=== PATIENT | female | born 1970 | race Caucasian/White ===

== ENCOUNTER 2016-09-07 07:07 | Emergency (ER) | payer OTHER, BC ==
[~2016-09-07] VITALS: Ht 154.9 cm; Wt 84.4 kg
[~2016-09-07 07:07] MED LIST: HYDR-4246 PO; NO ROUTINE MEDS; ORPH100T2 PO; TRAM50TA53 PO
[2016-09-07 07:10] VITALS: Ht 154.9 cm; Wt 84.4 kg
--- OUTSIDE RECORDS SUMMARY | 2016-09-07 07:11 | XMS REPORT ---
Author Author Umu Marx Organization [employer] Address Unknown Phone Unavailable Care Team Providers Care Optical Effects Layout Person Name Role Phone Umu Marx CP Unavailable Allergies, Adverse Reactions, Alerts Substance Reaction Event Type Sulfa rash Drug Allergy Problems Problem Type Condition Code Onset Dates Condition Status Assessment Cough R05 Active Assessment Major depressive disorder with single episode, remission status unspecified F32.9 Active Problem Major depressive disorder with single episode, remission status unspecified F32.9 Active Medications Medication Code System Code Instructions Start Date End Date Status Dosage Lidoderm [facility] [address]-01 5 % Externally on for 12 hrs then off x12 hr before applying new patch September 08, 2015 1 patch to intact skin remove after 12 hours ProAir HFA [facility] [address]-42 108 (90 Base) MCG/ACT Inhalation every 4 hrs Mar 15, 2016 2 puffs as needed Tessalon Perles [facility] [address]-25 100 MG Orally Three times a day Mar 15, 2016 Mar 20, 2016 1 capsule as needed Lisinopril [facility] [address]-37 10 MG Orally Once a day August 30, 2015 1 tablet Hydrocodone-Acetaminophen [facility] [address]-05 5-325 MG Orally every 12 hrs Mar 15, 2016 Mar 18, 2016 1 tablet as needed BuPROPion HCl (SR) [facility] [address]-07 150 MG Orally daily for one week then twice a day Mar 15, 2016 1 tablet Cold and Flu [facility] 84[address]20 Orally bid not defined Tramadol HCl [facility] [address]-08 50 MG Orally every 6 hrs 1 tablet as needed Procedures Procedure Coding System Code Date OFFICE VISIT, EST-LOW COMPLEXITY (15 MIN.) CPT-4 61704 Mar 15, 2016 Vital Signs Date/Time: Mar 15, 2016 Temperature 98 F Height 61.5 in Weight 214 lbs Blood Pressure Diastolic 90 mm Hg Blood Pressure Systolic 150 mm Hg Cardiac Monitoring Heart Rate 87 /min BMI 39.78 Index Oximetry 98 % Respiratory Rate 18 /min Results No Known Results Summary Purpose eClinicalWorks Submission
--- OUTSIDE RECORDS SUMMARY | 2016-09-07 07:11 | XMS REPORT ---
Author Donna Slaughter Organization [employer] Address Unknown Phone Unavailable Care Team Providers Care Drafter Chief Design Name Role Phone Donna Lou CP Unavailable Allergies, Adverse Reactions, Alerts Substance Reaction Event Type Sulfa rash Drug Allergy Problems Problem Type Condition Code Onset Dates Condition Status Assessment Essential (primary) hypertension I10 Active Assessment Contracture of muscle, left shoulder M62.412 Active Medications Medication Code System Code Instructions Start Date End Date Status Dosage Aspirin Adult Low Strength [facility] [address]-25 81 MG Orally Once a day 1 tablet Lisinopril [facility] [address]-71 10 MG Orally Once a day August 30, 2015 1 tablet Orphenadrine Citrate ER [facility] [address]-74 100 MG Orally Once a day 1 tablet at bedtime Tramadol HCl [facility] [address]-62 50 MG Orally every 6 hrs 1 tablet as needed Cyclobenzaprine HCl [facility] [address]-71 10 MG Orally TID prn August 30, 2015 October 29, 2015 1/2-1 tab Hydrocodone-Acetaminophen [facility] [address]-68 5-325 MG Orally every 6 hrs 1 tablet as needed Procedures Procedure Coding System Code Date OFFICE VISIT, VOIP NETWORK ENGINEER-LOW COMPLEXITY (30 MIN.) CPT-4 17174 August 30, 2015 Vital Signs Date/Time: August 30, 2015 Temperature 98.7 F Height 61.5 in Weight 217.12 lbs Blood Pressure Diastolic 91 mm Hg Blood Pressure Systolic 155 mm Hg Cardiac Monitoring Heart Rate 80 /min BMI 40.36 Index Respiratory Rate 18 /min Results No Known Results Summary Purpose eClinicalWorks Submission
--- OUTSIDE RECORDS SUMMARY | 2016-09-07 07:11 | XMS REPORT ---
Author Donna Slaughter [facility] eClinicalWorks Address Unknown Phone Unavailable Care Team Providers Care Trapper Bird Name Role Phone Donna Lou Unavailable Allergies No Known Allergies Problems Problem Type Condition Code Onset Dates Condition Status Problem Major depressive disorder with single episode, remission status unspecified F32.9 Active Assessment Other chest pain R07.89 Active Problem Major depressive disorder, single episode, moderate F32.1 Active Assessment Bronchitis J40 Active Assessment Cough R05 Active Assessment Rib pain on right side R07.81 Active Medications Medication Code System Code Instructions Start Date End Date Status Dosage Lisinopril [facility] [address]-58 10 MG Orally Once a day August 30, 2015 1 tablet Lidoderm [facility] [address]-46 5 % Externally on for 12 hrs then off x12 hr before applying new patch September 08, 2015 1 patch to intact skin remove after 12 hours ProAir HFA [facility] [address]-78 108 (90 Base) MCG/ACT Inhalation every 4 hrs Mar 15, 2016 2 puffs as needed Tessalon Perles [facility] [address]-93 100 MG Orally Three times a day Mar 15, 2016 Mar 20, 2016 1 capsule as needed Doxycycline Hyclate [facility] [address]-24 100 MG Orally Once a day Mar 20, 2016 Mar 30, 2016 1 capsule BuPROPion HCl (SR) [facility] [address]-11 150 MG Orally daily for one week then twice a day Mar 15, 2016 1 tablet Tramadol HCl [facility] [address]-33 50 MG Orally every 6 hrs 1 tablet as needed Cold and Flu [facility] [address]6783-[address]56 Orally bid not defined Procedures Procedure Coding System Code Date COMPLETE CBC W/AUTO DIFF WBC CPT-4 67335 Mar 20, 2016 COMPREHENSIVE METABOLIC PANEL CPT-4 47606 Mar 20, 2016 C-REACTIVE PROTEIN CPT-4 61500 Mar 20, 2016 Results Name Result Date Reference Range Unit Abnormality Flag C-Reactive Protein ----C-Reactive Protein 0.7 [id number] <0.5 mg/dL H eGFR ----eGFR >60 [id number] >60 mL/min CBC With Platelet and Differential ----Absolute Eosinophils 0.25 [id number] 0.00-0.50 10*3 ----Absolute Monocytes 0.39 [id number] 0.30-1.00 10*3 ----Neutrophils 60 53433788 51-75 % ----Absolute Basophils 0.05 [id number] 0.00-0.20 10*3 ----MPV 9.3 87932069 8.8-14.8 fL ----Monocytes 5 57771084 4-11 % ----RDW 13.3 14337036 11.5-14.5 % ----Lymphocytes 31 39364156 20-46 % ----MCHC 33.3 04114165 32.0-36.0 g/dL ----MCH 30.1 [id number] 27.0-32.0 pg ----MCV 90.2 88591459 82.0-99.0 fL ----Immature Granulocytes 0.3 20790128 0.0-1.0 % ----Platelet Count 404 [id number] 150-400 K/uL H ----Absolute Lymphocytes 2.40 96718053 0.80-3.30 10*3 ----Absolute Neutrophils 4.70 40897510 1.90-7.00 10*3 ----Eosinophils 3 25702355 0-4 % ----Basophils 1 59482209 0-2 % ----WBC 7.8 82045568 4.8-10.8 K/uL ----RBC 4.29 49831688 4.00-5.20 10*6/uL ----HGB 12.9 29858412 12.0-16.0 g/dL ----HCT 38.7 21303935 37.0-47.0 % Comprehensive Metabolic Panel (CMP) ----Chloride 107 20239974 99-111 mEq/L ----Potassium 4.5 04258477 3.5-5.2 mEq/L ----Albumin 4.3 39773483 3.5-5.0 g/dL ----CO2 26 71059626 22-31 mEq/L ----Alkaline Phosphatase 125 20160320 40-150 U/L ----Protein 6.7 20160320 6.1-7.7 g/dL ----Bilirubin Total 0.3 20160320 0.2-1.2 mg/dL ----Anion Gap 10 20160320 3-20 ----Calcium 9.7 20160320 8.9-10.5 mg/dL ----Globulin 2.4 20160320 1.8-4.0 g/dL ----Sodium 143 20160320 135-144 mEq/L ----BUN 9 20160320 7-19 mg/dL ----ALT (SGPT) 22 20160320 0-55 U/L ----AST (SGOT) 17 20160320 5-34 U/L ----Creatinine 0.88 20160320 0.57-1.11 mg/dL ----Glucose 90 28037975 70-99 mg/dL Summary Purpose eClinicalWorks Submission
--- OUTSIDE RECORDS SUMMARY | 2016-09-07 07:11 | XMS REPORT ---
Author Author Donna Lou [facility] eClinicalWorks Address Unknown Phone Unavailable Care Team Providers Care Wildlife Removal Specialist Name Role Phone Donna Lou CP Unavailable Allergies No Known Allergies Problems No Known Problems Medications No Known Medications Results No Known Results Summary Purpose eClinicalWorks Submission
--- OUTSIDE RECORDS SUMMARY | 2016-09-07 07:11 | XMS REPORT ---
Author Author Umu Marx Organization [employer] Address Unknown Phone Unavailable Care Team Providers Care Salesperson Stereo Equipment Name Role Phone Umu Marx CP Unavailable Allergies, Adverse Reactions, Alerts Substance Reaction Event Type Sulfa rash Drug Allergy Problems Problem Type Condition Code Onset Dates Condition Status Assessment Screening for cervical cancer Z12.4 Active Assessment Anxiety F41.9 Active Assessment Essential hypertension I10 Active Problem Essential hypertension I10 Active Problem High triglycerides E78.1 Active Problem Moderate single current episode of major depressive disorder F32.1 Active Problem Major depressive disorder with single episode, remission status unspecified F32.9 Active Assessment Moderate single current episode of major depressive disorder F32.1 Active Problem Anxiety F41.9 Active Problem Major depressive disorder, single episode, moderate F32.1 Active Assessment Encounter for gynecological examination (general) (routine) without abnormal findings Z01.419 Active Assessment History of hysterectomy for cancer Z90.710 Active Assessment High triglycerides E78.1 Active Assessment Screening for breast cancer Z12.39 Active Medications Medication Code System Code Instructions Start Date End Date Status Dosage Lisinopril [facility] [address]-40 10 MG Orally Once a day August 30, 2015 1 tablet ProAir HFA [facility] [address]-83 108 (90 Base) MCG/ACT Inhalation every 4 hrs Mar 15, 2016 2 puffs as needed Estroven [facility] [address]56 Orally not defined Promethazine-Codeine [facility] [address]-05 6.25-10 MG/5ML Orally q6-8 hr prn. DO NOT take with tessalon perles Mar 28, 2016 5 ml as needed BusPIRone HCl [facility] [address]-81 7.5 MG Orally Twice a day Apr 11, 2016 1 tablet Tramadol HCl [facility] [address]-78 50 MG Orally every 6 hrs 1 tablet as needed Lidoderm [facility] [address]-46 5 % Externally on for 12 hrs then off x12 hr before applying new patch September 08, 2015 1 patch to intact skin remove after 12 hours Venlafaxine HCl [facility] [address]-70 37.5 MG Orally Twice a day Apr 11, 2016 1 tablet with food daily for week then twice daily Fish Oil [facility] [address]-63 1000 MG Orally 3 Times a day Apr 25, 2016 May 25, 2016 1 capsule Cold and Flu [facility] [address] Orally bid not defined Procedures Procedure Coding System Code Date OFFICE VISIT, EST-LOW COMPLEXITY (15 MIN.) CPT-4 26801 Apr 24, 2016 BEHAV CHNG SMOKING 3-10 MIN CPT-4 39228 Apr 24, 2016 Vital Signs Date/Time: Apr 24, 2016 Temperature 98.3 F Height 61.5 in Weight 210 lbs Blood Pressure Diastolic 90 mm Hg Blood Pressure Systolic 132 mm Hg Cardiac Monitoring Heart Rate 72 /min BMI 39.03 Index Oximetry 99 % Respiratory Rate 16 /min Results No Known Results Summary Purpose eClinicalWorks Submission
--- OUTSIDE RECORDS SUMMARY | 2016-09-07 07:11 | XMS REPORT ---
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 Assessment Contracture of muscle, left shoulder M62.412 Active Assessment Other chest pain R07.89 Active Medications Medication Code System Code Instructions Start Date End Date Status Dosage Baclofen [facility] [address]-92 10 MG Orally Three times a day September 21, 2015 November 20, 2015 1/2-1 tablet tid prn Lisinopril [facility] [address]-24 10 MG Orally Once a day August 30, 2015 1 tablet Lidoderm [facility] [address]-79 5 % Externally on for 12 hrs then off x12 hr before applying new patch September 08, 2015 1 patch to intact skin remove after 12 hours Tramadol HCl [facility] [address]-82 50 MG Orally every 6 hrs 1 tablet as needed Acyclovir [facility] [address]-15 800 MG Orally 5 times a day for 7 days August 1 tablet Aspirin Adult Low Strength [facility] [address]-84 81 MG Orally Once a day 1 tablet Procedures Procedure Coding System Code Date OFFICE VISIT, EST-LOW COMPLEXITY (15 MIN.) CPT-4 32452 September 21, 2015 Vital Signs Date/Time: September 21, 2015 Temperature 98.2 F Height 61.5 in Weight 214.12 lbs Blood Pressure Diastolic 88 mm Hg Blood Pressure Systolic 132 mm Hg Cardiac Monitoring Heart Rate 93 /min BMI 39.80 Index Respiratory Rate 18 /min Results No Known Results Summary Purpose eClinicalWorks Submission
--- OUTSIDE RECORDS SUMMARY | 2016-09-07 07:11 | XMS REPORT | Referral Summary ---
Author Organization Unknown Address Unknown Phone Unavailable Care Team Providers Care Jewel Bearing Grinder Name Role Phone Eder Orta Primary Care Physician [phone] Encounter VC Date(s): 06/22/14 - 06/22/14 Via [facility], [facility] [address] [place] [address]- Discharge Diagnosis: Visit for screening mammogram Discharge Diagnosis: Fatigue Discharge Diagnosis: Breast pain Discharge Diagnosis: Depression Discharge Diagnosis: Weight gain Discharge Diagnosis: HTN (hypertension) Discharge Disposition: Home or Self Care Attending Physician: Gema Leroy APRN Admitting Physician: Gema Leroy APRN Vital Signs Most recent to 1 oldest [Reference Range]: Temperature Tympanic 36.3 degC [36.6-38.1 degC] *LOW* (06/22/14 9:05 AM) Peripheral Pulse 72 bpm Rate [60-100 bpm] (06/22/14 9:05 AM) Blood Pressure 104/60 mmHg [90-140/60-90 mmHg] (06/22/14 9:05 AM) Problem List Condition Effective Dates Status Health Status Informant Hypertension(Confirm Resolved ed) Obesity(Confirmed) Resolved Tobacco Active patient user(Confirmed) Allergies, Adverse Reactions, Alerts Substance Reaction Severity Status sulfanilamide topical Rash Active Medications FLUoxetine 10 mg oral capsule See Instructions, TAKE ONE CAPSULE BY MOUTH ONCE DAILY IN THE MORNING, # 15 caps , 0 Refill(s), Pharmacy: [id number], due for appointment, TAKE ONE CAPSULE BY MOUTH ONCE DAILY IN THE MORNING Special Instructions: TAKE ONE CAPSULE BY MOUTH ONCE DAILY IN THE MORNING Start Date: 06/14/14 Status: Ordered FLUoxetine 20 mg oral tablet 1 tabs, Oral, Daily, # 30 tabs, 0 Refill(s), Pharmacy: [id number], 1 tabs Oral Daily Start Date: 06/22/14 Status: Ordered lisinopril 10 mg oral tablet See Instructions, TAKE ONE TABLET BY MOUTH DAILY, # 90 tabs, 1 Refill(s), Pharmacy: [id number], TAKE ONE TABLET BY MOUTH DAILY Special Instructions: TAKE ONE TABLET BY MOUTH DAILY Start Date: 06/16/14 Status: Ordered [place] 5 mg-325 mg oral tablet 1 tabs, Oral, q6hr, as needed for pain, # 20 tabs, 0 Refill(s) Start Date: 05/06/14 Status: Ordered Results Hematology Most recent to 1 oldest [Reference Range]: WBC [4.8-10.8 K/uL] 5.7 K/uL (06/22/14 9:56 AM) RBC [4.00-5.20 M/uL] 4.18 M/uL (06/22/14 9:56 AM) Hgb [12.0-16.0 13.2 gm/dL gm/dL] (06/22/14 9:56 AM) Hct [37.0-47.0 %] 38.3 % (06/22/14 9:56 AM) MCV [82.0-99.0 fL] 91.6 fL (06/22/14 9:56 AM) MCH [27.0-32.0 pg] 31.6 pg (06/22/14 9:56 AM) MCHC [32.0-36.0 34.5 gm/dL gm/dL] (06/22/14 9:56 AM) RDW [11.5-14.5 %] 12.9 % (06/22/14 9:56 AM) Platelet [150-400 303 K/uL K/uL] (06/22/14 9:56 AM) MPV [8.8-14.8 fL] 9.7 fL (06/22/14 9:56 AM) Immature 0.2 % Granulocytes (06/22/14 9:56 AM) [0.0-1.0 %] Neutrophils [51-75 53 % %] (06/22/14 9:56 AM) Lymphocytes [20-46 35 % %] (06/22/14 9:56 AM) Monocytes [4-11 %] 7 % (06/22/14 9:56 AM) Eosinophils [0-4 %] 4 % (06/22/14 9:56 AM) Basophils [0-2 %] 1 % (06/22/14 9:56 AM) Neutro Absolute 3.01 THOUS [1.90-7.00 THOUS] (06/22/14 9:56 AM) Lymph Absolute 1.99 THOUS [0.80-3.30 THOUS] (06/22/14 9:56 AM) [place] Absolute 0.42 THOUS [0.30-1.00 THOUS] (06/22/14 9:56 AM) Eos Absolute 0.21 THOUS [0.00-0.50 THOUS] (06/22/14 9:56 AM) Baso Absolute 0.04 THOUS [0.00-0.20 THOUS] (06/22/14 9:56 AM) Chemistry Most recent to 1 oldest [Reference Range]: Sodium Lvl [135-144 145 mEq/L mEq/L] *HI* (06/22/14 9:56 AM) Potassium Lvl 4.0 mEq/L [3.5-5.2 mEq/L] (06/22/14 9:56 AM) Chloride [99-111 109 mEq/L mEq/L] (06/22/14 9:56 AM) CO2 [22-31 mEq/L] 26 mEq/L (06/22/14 9:56 AM) AGAP [3-20] 10 (06/22/14 9:56 AM) BUN [7-19 mg/dL] 13 mg/dL (06/22/14 9:56 AM) Glucose Lvl [70-99 74 mg/dL mg/dL] (06/22/14 9:56 AM) Creatinine Lvl 0.79 mg/dL [0.57-1.11 mg/dL] (06/22/14 9:56 AM) eGFR [>60 mL/min] >60 mL/min 1 (06/22/14 9:56 AM) Calcium Lvl 9.5 mg/dL [8.9-10.5 mg/dL] (06/22/14 9:56 AM) Chol [0-199 mg/dL] 205 mg/dL *HI* (06/22/14 9:56 AM) Trig [0-149 mg/dL] 123 mg/dL (06/22/14 9:56 AM) HDL [40-84 mg/dL] 39 mg/dL *LOW* (06/22/14 9:56 AM) LDL [0-130 mg/dL] 141 mg/dL *HI* (06/22/14 9:56 AM) VLDL Cholesterol 25 mg/dL [0-28 mg/dL] (06/22/14 9:56 AM) Cardiac Risk 5.3 [0.0-5.0] *HI* (06/22/14 9:56 AM) TSH with Reflex Free 0.51 T4 [0.35-4.94] (06/22/14 9:56 AM) 1Result Comment: Multiply eGFR results by 1.21 for race. Immunizations Vaccine Date Refusal Reason tetanus/diphth/pertuss (Tdap) adult/adol1 05/05/14 1Result Comment: [05/06/2014] Given at [facility] Procedures Procedure Date Related Diagnosis Body Site Collection of venous blood by venipuncture 06/22/14 DANITZA BSO - Total abdominal hysterectomy and 1994 bilateral salpingo-oophorectomy Appendectomy Carpal tunnel release delivery Hernia repair History of back surgery Hysterectomy Social History Social History Type Response Smoking Status Current every day smoker Assessment and Plan Extracted from: Title: Ambulatory Patient Education Author: Gema Leroy APRN Date : 06/22/14 Family Medicine Hypertension Hypertension is another name for high blood pressure. High blood pressure may mean that your heart needs to work harder to pump blood. Blood pressure consists of two numbers, which includes a higher number over a lower number ( example: 110/72). HOME CARE Make lifestyle changes as told by your doctor. This may include weight loss and exercise. Take your blood pressure medicine every day. Limit how much salt you use. Stop smoking if you smoke. Do not use drugs. Talk to your doctor if you are using decongestants or control pills. These medicines might make blood pressure higher. Females should not drink more than 1 alcoholic drink per day. Males should not drink more than 2 alcoholic drinks per day. See your doctor as told. GET HELP RIGHT AWAY IF: You have a blood pressure reading with a top number of 180 or higher. You get a very bad headache. You get blurred or changing vision. You feel confused. You feel weak, numb, or faint. You get chest or belly (abdominal ) pain. You throw up (vomit ). You cannot breathe very well. MAKE SURE YOU: Understand these instructions. Will watch your condition. Will get help right away if you are not doing well or get worse. Document Released: 10/22/2008 Document Revised: 07/28/2012 Document Reviewed: [employer] Patient Information 2014 [employer]. No follow up information was provided. Extracted from: Title: Office Visit Note Author: Gema Leroy APRN Date: 06/22/14 Assessment/Plan Breast pain Depression increase prozac to 20mg daily. rtc in 1mo. Fatigue HTN (hypertension) hold lisinopril at this time. recheck bp outside of clinic. Ordered: Basic Metabolic Panel CBC w/ Differential Lipid Panel Visit for screening mammogram due for [facility]. please schedule soon. Weight gain Ordered: TSH with Reflex Free T4 Orders: FLUoxetine, 1 tabs, Oral, Daily, # 30 tabs, 0 Refill(s), Pharmacy: [id number], 1 tabs Oral Daily MG Mammogram Diagnostic Bilateral
--- OUTSIDE RECORDS SUMMARY | 2016-09-07 07:11 | XMS REPORT ---
Author Author Ron Rockwell Organization Unknown Address [address], [place] [id number] Phone Care Team Providers Care Dry Plasterer Helper Name Role Phone Apollo JENSEN PP Unavailable Reason for Referral No Reason for Referral was given. History of Present Illness HCPA Text Box HPI: Patient complains of numbness to left shoulder and electrical feeling down into legs. DOI 04/03/12. W/C [facility]. Problems * Normal Routine History And Physical Adult (V70.0); (Active) * Normal Routine History And Physical Adult (V70.0); (Active) Medication * Hydrocodone-Acetaminophen 5-325 MG Oral Tablet; Start Date: 07/04/2012 (Active ) * Atenolol-Chlorthalidone 50-25 MG Oral Tablet; TAKE 1 TABLET DAILY.; Start Date : 07/04/2012 (Active) * Flexeril 10 MG Oral Tablet; TAKE 1 TABLET 3 TIMES DAILY NEEDED.; Start Date : 07/04/2012 (Active) * FLUoxetine HCl 40 MG Oral Capsule; TAKE 1 CAPSULE DAILY.; Start Date: 2012 (Active) * TraMADol HCl 50 MG Oral Tablet; TAKE 1 TABLET EVERY 12 HOURS NEEDED.; Start Date: 09/18/2012 (Active) Allergies and Adverse Reactions * Sulfa Drugs (Active) Past Medical History * No Significant Medical History Social History * Current Smoker (305.1); (Active) Vital Signs Date Description Test Result 18 Sep 2012 10:14 AM recorded by: Kelly Fowler BP Systolic 132 mm[Hg] BP Diastolic 88 mm[Hg] Heart Rate 68 /min Advance Directives * No Advance Directives available. Encounters * Appointment 09/18/2012 * RTNPT , Provider: Matty Almazan, Status: Can , Time: 11:30 AM 09/30/2012 * [id number] , Provider: Matty Almazan, Status: Pen , Time: 11:30 AM 09/30/2012
--- OUTSIDE RECORDS SUMMARY | 2016-09-07 07:11 | XMS REPORT ---
Author Donna Slaughter eClinicalWorks Address Unknown Phone Unavailable Care Team Providers Care Screw Supervisor Name Role Phone Donna Lou Unavailable Allergies, Adverse Reactions, Alerts Substance Reaction [...] Instructions Start Date End Date Status Dosage BuPROPion HCl (SR) [facility] [address]-46 150 MG Orally daily for one week then twice a day Mar 15, 2016 1 tablet Cold and Flu [facility] [address] Orally bid not defined Doxycycline Hyclate [facility] [address]-23 100 MG Orally Once a day Mar 20, 2016 Mar 30, 2016 1 capsule Lisinopril [facility] [address]-63 10 MG Orally Once a day August 30, 2015 1 tablet Lidoderm [facility] [address]-56 5 % Externally on for 12 hrs then off x12 hr before applying new patch September 08, 2015 1 patch to intact skin remove after 12 hours Tesjeannaon Lorettaes [facility] [address]-16 100 MG Orally Three times a day Mar 15, 2016 Mar 20, 2016 1 capsule as needed Tramadol HCl [facility] [address]-11 50 MG Orally every 6 hrs 1 tablet as needed ProAir HFA [facility] [address]-81 108 (90 Base) MCG/ACT Inhalation every 4 hrs Mar 15, 2016 2 puffs as needed Procedures Procedure Coding System Code Date OFFICE VISIT, EST-LOW COMPLEXITY (15 MIN.) CPT-4 57642 Mar 20, 2016 Vital Signs Date/Time: Mar 20, 2016 Temperature 99.6 F Height 61.5 in Weight 212.8 lbs Blood Pressure Diastolic 90 mm Hg Blood Pressure Systolic 152 mm Hg Cardiac Monitoring Heart Rate 89 /min BMI 39.55 Index Oximetry 94 % Results No Known Results Summary Purpose eClinicalWorks Submission
--- OUTSIDE RECORDS SUMMARY | 2016-09-07 07:11 | XMS REPORT | Continuity of Care Document ---
Author Author [facility] Organization [facility] Address Unknown Phone Unavailable Allergies Medications Problems Procedures Results Encounters ACCT No. Visit Date/Time Discharge Status Pt. Type Provider Facility Loc./Unit Complaint [id number] 07/31/2013 14:50:00 07/31/2013 23 :59:59 CLS Outpatient
--- OUTSIDE RECORDS SUMMARY | 2016-09-07 07:11 | XMS REPORT ---
Author Author Donna Lou [facility] eClinicalWorks Address Unknown Phone Unavailable Care Team Providers Care Retail Merchandiser Name Role Phone Donna Lou CP Unavailable Allergies No Known Allergies Problems No Known Problems Medications Medication Code System Code Instructions Start Date End Date Status Dosage Lisinopril [facility] [address]-93 10 MG Orally Once a day August 30, 2015 1 tablet Results No Known Results Summary Purpose eClinicalWorks Submission
--- OUTSIDE RECORDS SUMMARY | 2016-09-07 07:11 | XMS REPORT ---
Author Author Umu Marx Organization eClinicalWorks Address Unknown Phone Unavailable Care Team Providers Care Health Inspector Name Role Phone Umu Marx CP Unavailable Allergies, Adverse Reactions, Alerts Substance Reaction Event Type Sulfa rash Drug Allergy Problems Problem Type Condition Code Onset Dates Condition Status Problem Major depressive disorder, single episode, moderate F32.1 Active Problem Major depressive disorder with single episode, remission status unspecified F32.9 Active Problem Anxiety F41.9 Active Assessment Single current episode of major depressive disorder, unspecified depression episode severity F32.9 Active Assessment Anxiety F41.9 Active Medications Medication Code System Code Instructions Start Date End Date Status Dosage ProAir HFA [facility] [address]-42 108 (90 Base) MCG/ACT Inhalation every 4 hrs Mar 15, 2016 2 puffs as needed BusPIRone HCl [facility] [address]-28 7.5 MG Orally Twice a day Apr 11, 2016 1 tablet Venlafaxine HCl [facility] [address]-56 37.5 MG Orally Twice a day Apr 11, 2016 1 tablet with food daily for week then twice daily Cold and Flu [facility] [address] Orally bid not defined Promethazine-Codeine [facility] [address]-95 6.25-10 MG/5ML Orally q6-8 hr prn. DO NOT take with tessalon perles Mar 28, 2016 5 ml as needed Lidoderm [facility] [address]-58 5 % Externally on for 12 hrs then off x12 hr before applying new patch September 08, 2015 1 patch to intact skin remove after 12 hours Tramadol HCl [facility] [address]-70 50 MG Orally every 6 hrs 1 tablet as needed Lisinopril [facility] [address]-72 10 MG Orally Once a day August 30, 2015 1 tablet Procedures Procedure Coding System Code Date OFFICE VISIT, EST-LOW COMPLEXITY (15 MIN.) CPT-4 85503 Apr 11, 2016 Vital Signs Date/Time: Apr 11, 2016 Temperature 98.2 F Height 61.5 in Weight 210 lbs Blood Pressure Diastolic 88 mm Hg Blood Pressure Systolic 146 mm Hg Cardiac Monitoring Heart Rate 86 /min BMI 39.03 Index Oximetry 98 % Respiratory Rate 16 /min Results No Known Results Summary Purpose eClinicalWorks Submission
--- OUTSIDE RECORDS SUMMARY | 2016-09-07 07:11 | XMS REPORT | Referral Summary ---
Author Organization Unknown Address Unknown Phone Unavailable Care Team Providers Care Treating Plant Supervisor Name Role Phone Eder Orta Primary Care Physician [phone] Encounter [facility] [id number] Date(s): 08/04/14 - 08/04/14 [facility], [place], Surgery [address] [place], [place] [address] Discharge Diagnosis: Breast pain Discharge Disposition: Home or Self Care Attending Physician: Sanjuanita Nelson MD Admitting Physician: Sanjuanita Nelson MD Referring Physician: Ivone Orta MD Vital Signs Most recent to 1 oldest [Reference Range]: Peripheral Pulse 80 bpm Rate [60-100 bpm] (08/04/14 9:22 AM) Blood Pressure 140/86 mmHg [90-140/60-90 mmHg] (08/04/14 9:22 AM) Problem List Condition Effective Dates Status Health Status Informant Hypertension(Confirm Resolved ed) Morbid Active patient obesity(Confirmed) Obesity(Confirmed) Resolved Tobacco Active patient user(Confirmed) Allergies, Adverse Reactions, Alerts Substance Reaction Severity Status sulfanilamide topical Rash Active Medications FLUoxetine 10 mg oral capsule See Instructions, TAKE ONE CAPSULE BY MOUTH ONCE DAILY IN THE MORNING, # 15 caps , 0 Refill(s), Pharmacy: [id number], due for appointment, TAKE ONE CAPSULE BY MOUTH ONCE DAILY IN THE MORNING Special Instructions: TAKE ONE CAPSULE BY MOUTH ONCE DAILY IN THE MORNING Start Date: 06/14/14 Status: Ordered FLUoxetine 20 mg oral tablet 1 tabs, Oral, Daily, # 30 tabs, 0 Refill(s), Pharmacy: [id number], 1 tabs Oral Daily Start Date: 06/22/14 Status: Ordered lisinopril 10 mg oral tablet See Instructions, TAKE ONE TABLET BY MOUTH DAILY, # 90 tabs, 1 Refill(s), Pharmacy: [id number], TAKE ONE TABLET BY MOUTH DAILY Special Instructions: TAKE ONE TABLET BY MOUTH DAILY Start Date: 06/16/14 Status: Ordered Pioneer 5 mg-325 mg oral tablet 1 tabs, Oral, q6hr, as needed for pain, # 20 tabs, 0 Refill(s) Start Date: 05/06/14 Status: Ordered Results No data available for this section Immunizations Vaccine Date Refusal Reason tetanus/diphth/pertuss (Tdap) adult/adol1 05/05/14 1Result Comment: [05/06/2014] Given at [facility] Procedures Procedure Date Related Diagnosis Body Site DANITZA BSO - Total abdominal hysterectomy and 1994 bilateral salpingo-oophorectomy Appendectomy Carpal tunnel release delivery Hernia repair History of back surgery Hysterectomy Social History Social History Type Response Smoking Status Current every day smoker Assessment and Plan Extracted from: Title: Ambulatory Patient Education Author: Sanjuanita Nelson MD Date: Family Medicine Breast Tenderness Breast tenderness is a common complaint made by women of all ages. It is also called mastalgia or mastodynia , which means breast pain. The condition can range from mild discomfort to severe pain. It has a variety of causes. Your caregiver will find out the likely cause of your breast tenderness by examining your breasts, asking you about symptoms and perhaps ordering some tests. Breast tenderness usually does not mean you have breast cancer. CAUSES Breast tenderness has many possible causes. They include: Premenstrual changes. A week to 10 days before your period, your breasts might ache or feel tender. Other hormonal causes. These include: When sexual and physical traits mature (puberty ). . The time right before and the year after menopause (perimenopause ). The day when it has been 12 months since your last period (menopause ). Large breasts. Infection (also called mastitis ). control pills. . Tenderness can occur if the breasts are overfull with milk or if a milk duct is blocked. Injury. Fibrocystic breast changes. This is not cancer (benign ). It causes painful breasts that feel lumpy. Fluid-filled sacs (cysts ). Often cysts can be drained in your healthcare provider's office. Fibroadenoma. This is a tumor that is not cancerous. Medication side effects. Blood pressure drugs and diuretics (which increase urine flow) sometimes cause breast tenderness. Previous breast surgery, such as a breast reduction. Breast cancer. Cancer is rarely the reason breasts are tender. In most women, tenderness is caused by something else. DIAGNOSIS Several methods can be used to find out why your breasts are tender. They include: Visual inspection of the breasts. Examination by hand. Tests, such as: Mammogram. Ultrasound. Biopsy. Lab test of any fluid coming from the nipple. Blood tests. MRI. TREATMENT Treatment is directed to the cause of the breast tenderness from doing nothing for minor discomfort, wearing a good support bra but also may include: Taking dslx-gac-yghhrlw medicines for pain or discomfort as directed by your caregiver. Prescription medicine for breast tenderness related to: Premenstrual. Fibrocystic. Puberty. . Menopause. Previous breast surgery. Large breasts. Antibiotics for infection. control pills for fibrocystic and premenstrual changes. More frequent feedings or pumping of the breasts and warm compresses for breast engorgement when nursing. Cold and warm compresses and a good support bra for most breast injuries. Breast cysts are sometimes drained with a needle (aspiration ) or removed with minor surgery. Fibroadenomas are usually removed with minor surgery. Changing or stopping the medicine when it is responsible for causing the breast tenderness. When breast cancer is present with or without causing pain, it is usually treated with major surgery (with or without radiation) and chemotherapy. HOME CARE INSTRUCTIONS Breast tenderness often can be handled at home. You can try: Getting fitted for a new bra that provides more support, especially during exercise. Wearing a more supportive or sports bra while sleeping when your breasts are very tender. If you have a breast injury, using an ice pack for 15 to 20 minutes. Wrap the pack in a towel. Do not put the ice pack directly on your breast. If your breasts are too full of milk as a result of , try: Expressing milk either by hand or with a breast pump. Applying a warm compress for relief. Taking tofz-bin-xwgrpfd pain relievers, if this is OK with your caregiver. Taking medicine that your caregiver prescribes. These might include antibiotics or control pills. Over the mcc, your breast tenderness might be eased if you: Cut down on caffeine. Reduce the amount of fat in your diet. Also, learn how to do breast examinations at home. This will help you tell when you have an unusual growth or lump that could cause tenderness. And keep a log of the days and times when your breasts are most tender. This will help you and your caregiver find the right solution. SEEK MEDICAL CARE IF: Any part of your breast is hard, red and hot to the touch. This could be a sign of infection. Fluid is coming out of your nipples (and you are not ). Especially watch for blood or pus. You have a fever as well as breast tenderness. You have a new or painful lump in your breast that remains after your period ends. You have tried to take care of the pain at home, but it has not gone away. Your breast pain is getting worse. Or, the pain is making it hard to do the things you usually do during your day. Document Released: 04/18/2009 Document Revised: 07/28/2012 Document Reviewed: [facility] Patient Information 2014 [facility]. No follow up information was provided.
--- OUTSIDE RECORDS SUMMARY | 2016-09-07 07:11 | XMS REPORT ---
Author Author Donna Lou [facility] eClinicalWorks Address Unknown Phone Unavailable Care Team Providers Care Hardware Test Engineer Name Role Phone Donna Lou CP Unavailable Allergies No Known Allergies Problems Problem Type Condition Code Onset Dates Condition Status Problem Essential hypertension I10 Active Problem High triglycerides E78.1 Active Problem Moderate single current episode of major depressive disorder F32.1 Active Problem Major depressive disorder with single episode, remission status unspecified F32.9 Active Problem Anxiety F41.9 Active Problem Major depressive disorder, single episode, moderate F32.1 Active Medications No Known Medications Results No Known Results Summary Purpose eClinicalWorks Submission
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
--- OUTSIDE RECORDS SUMMARY | 2016-09-07 07:11 | XMS REPORT | Continuity of Care Document ---
Author Author [facility] Address Unknown Phone Unavailable Payers Payer name Insurance type Covered libertarian ID Authorization(s) Unknown Problems Condition Effective Dates (start - stop) Clinical Status Abdominal pain, epigastric - *Acute Family History Family Member Diagnosis Age At Onset Status Father (Unknown) Hypertension Yes Mother (Unknown) Hypertension Yes Father (Unknown) Cancer - prostate Yes Mother (Unknown) Cancer - uterine Yes Social History Social History Element Description Quantity Unknown Allergies, Adverse Reactions, Alerts Substance Reaction Severity Status SULFANILAMIDE Rash Unknown Medications Medication Instructions Dosage Effective Dates (start - stop) Status tramadol 50 mg tablet take 1 tablet (50MG) by oral route every 6 hours as needed 50 MG - Active sucralfate 1 gram tablet take 1 tablet (1G) by oral route 4 times every day on an empty stomach 1 hour before meals and at bedtime 1 G - Active ranitidine 150 mg capsule take 1 capsule (150MG) by oral route 2 times every day 150 MG - Active Immunizations Vaccine Date Status Comments Unknown Results Test Name Date and Time Measure Units Reference Range Abnormal Flag Comments Unknown Vital Signs Date / Time: Height Weight Pulse Rate Blood Pressure Temperature /14:53:00 60.00 in 197.00 lbs 140/82 mm[Hg] 98.2 F Procedures Procedure Date Unknown Encounters Encounter Location Date Patient Visit [facility] New Surg Advance Directives Directive Effective Date Unknown
--- OUTSIDE RECORDS SUMMARY | 2016-09-07 07:11 | XMS REPORT ---
Author Author Donna Lou [facility] eClinicalWorks Address Unknown Phone Unavailable Care Team Providers Care Park Interpreter Name Role Phone Donna Lou CP Unavailable Allergies No Known Allergies Problems Problem Type Condition Code Onset Dates Condition Status Problem Major depressive disorder with single episode, remission status unspecified F32.9 Active Problem Major depressive disorder, single episode, moderate F32.1 Active Medications No Known Medications Results No Known Results Summary Purpose eClinicalWorks Submission
--- OUTSIDE RECORDS SUMMARY | 2016-09-07 07:11 | XMS REPORT ---
Author Author Clarissa Nassar [facility] eClinicalWorks Address Unknown Phone Unavailable Care Team Providers Care Medical Accounting Clerk Name Role Phone Clarissa Nassar CP Unavailable Allergies No Known Allergies Problems Problem Type Condition Code Onset Dates Condition Status Problem Major depressive disorder with single episode, remission status unspecified F32.9 Active Assessment Major depressive disorder, single episode, moderate F32.1 Active Problem Major depressive disorder, single episode, moderate F32.1 Active Assessment Encounter for consultation Z71.9 Active Medications No Known Medications Results No Known Results Summary Purpose eClinicalWorks Submission
--- NOTE | 2016-09-07 07:21 | NUR ---
PROVIDER DR VIDAL IN ROOM WITH PT.
--- OUTSIDE RECORDS SUMMARY | 2016-09-07 07:21 | XMS REPORT | Continuity of Care Document ---
Author Author [facility] Organization [facility] Address Unknown Phone Unavailable Allergies Medications Problems Procedures Results Encounters ACCT No. Visit Date/Time Discharge Status Pt. Type Provider Facility Loc./Unit Complaint [id number] 07/31/2013 14:50:00 07/31/2013 23 :59:59 CLS Outpatient
--- OUTSIDE RECORDS SUMMARY | 2016-09-07 07:21 | XMS REPORT | Continuity of Care Document ---
Author Author [facility] Organization [facility] Address Unknown Phone Unavailable Support Name Relationship Address Phone CLIENT, BILLING Caregiver Unknown Unavailable DULCE MARIA RAMAN MD Caregiver [address] [place], [place] [phone] DIDI GARZON Next Of Kin [address] [place] [address] Insurance Providers Payer Name Policy Number Subscriber Name Relationship Workers Compensation Vernell Adams Self Benefit Management [facility] [id number] Vernell Adams Self Advance Directives Directive Response [...] F (96.8 - 99.1) Temperature (Calculated Celsius) [phone] degrees C (36.0 - 37.3) Pulse Rate [...] or prior exposure. Measles IgG performed at [facility], [address] [place] [id number] Smocker Raman Montoya MD Monocytes # (Auto) July [...] 28, 2013 2:37pm LAB TEST FORM REQUEST [id number] - Urine Cannabinoids Screen June 29, 2013 [...] OD Ratio - Mumps IgG performed at [facility], [facility] [place], [place] [id number] Director Raman Montoya MD Rubeola (Measles) IgG Ab Index July 28, 2013 1:24pm 4.83 OD Ratio - Varicella-Zoster IgG Ab Index Value July 28, 2013 1:24pm 1.48 OD Ratio - Varicella Zoster IGG performed at [facility], [facility] [place] [address] Smocker Raman Montoya MD Helicobacter pylori Rapid Urease Gastric Biopsy September 14, 2013 10:12am Procedures No known history of procedures. Encounters Encounter Location Date/Time Departed Emergency Room [facility] 05/05/14 5:08pm
--- NOTE | 2016-09-07 07:28 | ERPDOC ---
Departure Disposition Decision Date: Sep 07, 2016 Disposition Decision Time: 08:35 Disposition: 01 DISCHARGED HOME, SELF-CARE Impression Impression Impression: Primary Impression: Contusion Encounter type: initial encounter Contusion area: thoracic wall Laterality : left Severity: Moderate Condition: Improved Seen By: Physician only Referrals: CHRISTINE CASTANON APRN (Family) 2 Days Patient Instructions: Contusion in Adults (ED) Problems/Meds/Labs Reviewed?: Yes Medications reviewed and manag: Yes Follow up care ordered?: Yes Mental Status: Alert, Oriented HPI - Fall/Injury General Chief Complaint: Fall Stated Complaint: FALL, DIFF BREATHING Time Seen by Provider: 07:16 Source: patient Exam Limitations: no limitations HPI - Fall/Injury Initial Comments 45-year-old female presents the emergency department with a chief complaint of a mechanical fall which occurred at work. Patient was walking on the sidewalk carrying to heavy boxes when she tripped and fell landing on her left side. Patient notes pain in her left lateral ribs lateral to the breast. She notes pain in the right knee. Patient denies striking her head, neck pain, or loss of consciousness. Patient denies any other complaints or associated symptoms. She denies any other injuries. Pain is moderate in nature. There is no radiation of pain. Pain is dull. She notes that the pain increases with ambulation and improves with rest and positioning. Patient denies any other complaints or associated symptoms. Occurred At: work Onset: Constant Allergies: Coded Allergies: Sulfa (Sulfonamide Antibiotics) (Verified Allergy, Unknown, 01/02/15) Past History Past Medical History Metabolic: hypertension Surgical History General: appendix, neck Reproductive/: hysterectomy Family History Family History: Negative Vaccines Hx Influenza Vaccination: Yes (FEB 2013) Hx Pneumococcal Vaccination: Yes (FEB 2013) Hx Tetanus, Diptheria, Pertuss: No (2002) Social History Smoking Status: Never smoker Substance Use Type: does not use Alcohol Intake: none Review of Systems Constitutional Constitutional: DENIES: chills, fever Eyes General: DENIES: erythema, exudate Lids/Accessories: DENIES: erythema, swelling Vision: DENIES: acuity, blurring ENMT Ears: DENIES: drainage, erythema Hearing: DENIES: hearing loss Balance: DENIES: ataxia, falling to one side Sinuses: DENIES: congestion, pain Nose: DENIES: nosebleeds, pain Mouth/Throat: DENIES: painful swallowing, sore throat Teeth: DENIES: pain Jaw: DENIES: pain Cardiovascular Cardiac: DENIES: chest pain, dyspnea on exertion Rhythm/Rate: DENIES: irregular beat, palpitations Vascular: DENIES: pedal edema, unilateral swelling Pulmonary Respiratory: DENIES: cough, dyspnea, pleuritic chest pain, sputum GI Upper Abdomen: DENIES: nausea, pain, vomiting Lower Abdomen: DENIES: diarrhea, pain General: DENIES: dysuria, frequency Musculoskeletal General: joint pain, pain, tenderness Integumentary Skin: DENIES: itching, rash Neurological General: DENIES: headache, numbness, weakness Psychiatric Psychiatric: DENIES: emotional instability, suicidal ideation/attempt Endocrine Endocrine: DENIES: polydipsia, polyphagia Hematologic/Lymphatic Hematologic/Lymphatic: DENIES: frequent nosebleeds, lymphadenopathy Allergic/Immunological Allergic/Immunoligical: DENIES: allergic reactions, hives Physical Exam General General Nourishment: well nourished, well developed, appears stated age, no acute distress, adult General Body Habitus: well groomed Vitals and Pain First Documented Vital Signs Date Time Temp Pulse Resp B/P Pulse Ox O2 Delivery O2 Flow Rate FiO2 09/07/16 07:10 97.4 90 14 156/96 99 Room Air Weight: Kilograms: 84.400 Height (feet): 5 Height (inches): 1.00 Triage Pain Scale: RN VS reviewed by Provider: Yes Normal Exams: Head: Normocephalic w/o trauma Eyes: Pupils are PERRLA w/ EOMI, No scleral icterus, irritation, or foreign bodies noted ENMT: No facial trauma, nasal exudates, pharyngeal erythema, or exudates are noted Dental: No fractured, loose, or missing teeth noted Neck: Full range of motion, without adenopathy, JVD, bruits or thyromegaly Chest/Resp: Clear all prince, with good airflow, and symmetry bilaterally CV: Regular rate and rhythm, without murmur or gallop, Pulses 2+ all extremities, capillary refill, <2 seconds all ext., no pedal edema noted Abdomen: Bowel sounds positive, soft, non-tender, non-distended, no hepatosplenomegaly, masses or bruits noted Lymphatic: No lymphadenopathy, or lymphedema noted Musculoskeletal: No tenderness, or deformity noted, good range of motion, all extremities Integumentary: No rashes, hives, or bruising noted, hair and nails, without abnormality Neurologic: Patient is alert, and oriented, cranial nerves, motor/sensory/ cerebellar, exams w/o gross deficits, to observation Psychiatric: Patient exhibits, appropriate attention, emotion and affect Neck (brief) Neck: NOT FOUND: tenderness Musculoskeletal (brief) Comments L chest wall - tender to palpation without crepitus. No sign of trauma. R knee - full range of motion. Diffusely tender to palpation. No focal bony tenderness. Pulses intact. Sensation intact. Cap refill less than 2. Gait is normal. No other tenderness in the right lower extremity. No erythema. No edema. Skin is intact. Unremarkable ligament exam. Differential Diagnoses Considering: Contusion, Fracture, Sprain, Strain Progress Results/Orders Orders Procedure Category Date Status Time Ct Head W/O Contrast CT 09/07/16 Resulted 07:25 Ct Cervical Spine W/O CT 09/07/16 Resulted Contrast 07:25 Knee Right 3 Views RAD 09/07/16 Resulted 07:25 Ribs Left With Ap RAD 09/07/16 Resulted Chest 07:25 Hydrocodone/Acetaminophen PHA 09/07/16 Complete ([place] 7.5/325 08:45 Incentive Spirometry RT 09/07/16 Logged Manage Incentive KIANA 09/07/16 In Process Spirometer 16:00 Knee Immobilizer KIANA 09/07/16 In Process 08:34 Crutches EDM 09/07/16 Transmitted 08:34 Medications Current ED Medications Acetaminophen/ Hydrocodone Bitart ([place] 7.5/325) 1 tab O ONCE PO Last administered on 09/07/16t 09:10; Start 09/07/16 at 08:45; Stop 09/07/16 at 08:46 ; Status DC Progress Progress Imaging is discussed in detail with the patient and questions are answered. Patient is given analgesic pain medication with improvement of symptoms in the emergency Department. Patient is given an incentive spirometer and trained in its use by respiratory therapy. Patient is placed in a knee immobilizer with good alignment by the RN. Patient is distal neurovascular intact post- application of knee immobilizer. Patient is provided with crutches and educated in their use. She is discharged home in improved condition. Patient is to follow up as instructed. Patient's to return to the emergency department if her condition worsens or changes in any manner. Patient is in agreement with the current plan of management. She is provided with a prescription for analgesic pain medication. Patient declined Xray of L elbow. Xray Xray : Xray: Ribs L Interpretation: Normal, Reviewed Written Report CT CT : CT: Head no contrast Interpretation: Normal, Reviewed Written Report (C-Spine: Negative.) LISA VIDAL DO Sep 07, 2016 07:28
--- NOTE | 2016-09-07 07:46 | NUR ---
CT/XRAY PT TO CT/XRAY PER COT.
--- NOTE | 2016-09-07 08:07 | DI ---
Indication: ITS.REASON: pain PROCEDURE: CT HEAD W/O CONTRAST: Encounter: Initial Comparison: None Technique: Axial CT images through the head were performed without contrast. Iterative Reconstruction dose reducing technique was utilized. FINDINGS: The ventricles are of normal size, shape, and configuration for the patient's age. There is no evidence of acute intracranial hemorrhage, midline displacement, or mass effect. The CT attenuation of the brain parenchyma is normal within the cerebellum, brain stem, and cerebral hemispheres. The tympanic cavities and mastoid air cells are free of appreciable disease. There are no definite fractures of the skull base, calvarium, or visualized portion of the midface. IMPRESSION: No CT evidence of acute intracranial abnormality. .
--- NOTE | 2016-09-07 08:09 | DI ---
Indication: ITS.REASON: Neck pain PROCEDURE: CT CERVICAL SPINE W/O CONTRAST: Encounter: Initial Comparison: None Technique: Axial CT images through the cervical spine were performed without contrast. Coronal and sagittal reformatted images were also obtained. Automated Exposure Control and Iterative Reconstruction dose reducing techniques were utilized. FINDINGS: Anterior C7-T1 cervical fusion without evidence of hardware failure. The alignment of the cervical spine is slightly straightened as expected postoperatively. There is no evidence of acute fracture or subluxation of the cervical spine. The facet joints are well aligned with preservation of the intervertebral disk and facet joints. The atlantoaxial articulation, dens, and upper cervical spine demonstrate no subluxation. The paraspinal soft tissues and spinal canal appear unremarkable. IMPRESSION: No acute osseous abnormality of the cervical spine. .
--- NOTE | 2016-09-07 08:18 | NUR ---
CT RETURN PT RETURNED FROM CT/XRAY PER COT. MANUAL CSPINE HELD WITH ALL MOVEMENT TO AND FROM COT BY RN. NEUROS REMAIN INTACT X4 PRIOR TO AND FOLLOWING ALL MOVEMENT.
--- NOTE | 2016-09-07 08:20 | NUR ---
PROVIDER/C-COLLAR DR. VIDAL IN ROOM WITH PT, REMOVED C-COLLAR. NEUROS REMAIN INTACT X4.
--- NOTE | 2016-09-07 08:29 | DI ---
Indication: ITS.REASON: Fall today with left rib pain PROCEDURE: RIBS LEFT WITH AP CHEST: Encounter: Initial Comparison: None FINDINGS: Chest: The lungs are clear. There is no abnormal airspace opacity, pleural effusion or pneumothorax identified. The heart size and mediastinum are within normal limits. Cervical spine fusion. AP and oblique views of the left ribs: No displaced rib fracture is seen. IMPRESSION: No acute cardiopulmonary abnormality. .
--- NOTE | 2016-09-07 08:30 | DI ---
Indication: ITS.REASON: Fall today with pain, injury PROCEDURE: KNEE RIGHT 3 VIEWS: Encounter: Initial Comparison: None Findings: There is no acute fracture, dislocation or malalignment identified. Impression: No acute osseous abnormality. .
[2016-09-07] MEDS ORDERED: HYDR-347 PO (08:37)
--- NOTE | 2016-09-07 08:54 | NUR ---
RT RT IN ROOM WITH PT FOR TEACHING.
[2016-09-07 09:13] VITALS: BP 148/78; PULSE 88; RESP 14; TEMP 98; O2SAT 99
== END 2016-09-07 09:13 | disposition home or self-care (01) ==
LOC: ED 07:07
DX: S20.212A Contusion of left front wall of thorax, initial encounter (principal); M25.561 Pain in right knee; W01.0XXA Fall on same level from slipping, tripping and stumbling without subsequent striking against object, initial encounter; Y93.01 Activity, walking, marching and hiking; Y92.480 Sidewalk as the place of occurrence of the external cause; Y99.0 Civilian activity done for income or pay